=== PATIENT | male | born 1990 | race Caucasian/White ===

== ENCOUNTER 2023-10-08 16:28 | Emergency (ER) | payer OTHER ==
--- OUTSIDE RECORDS SUMMARY | 2023-10-08 16:45 | XMS REPORT | Continuity of Care Document ---
:1990 Author Organization [facility] t Address [address] [facility]. [address] [place] [address] Care Team Providers Name Role Phone Pcp, Patient Does Not Have A Primary Care Physician [id number] Nanentte SHARMA Attending Clinician Unavailable Nannette Becerra Attending Clinician Doctor Unassigned, [place] Attending Clinician Unavailable Nina Chao Attending Clinician Favio Patel MD Attending Clinician FAVIO PATEL Attending Clinician Unavailable DAMASO TEJADA Attending Clinician Unavailable NINA BONE Admitting Clinician Unavailable DAMASO TEJADA Admitting Clinician Unavailable Payers Payer Name Policy Type Policy Number Effective Date Expiration Date Aury lopez [facility] [id number] 2022 00:00:00 PLUS Problems Condition Condition Condition Status Onset Resolution Last Treating Co mments Source Name Details Category Date Date Treatment Clinician Date No known No known Disease Unive rs active active ity of problems problems [facility] Allergies, Adverse Reactions, Alerts Allergy Allergy Status Severity Reaction(s) Onset Inactive Treating Comm ents Source Name Type Date Date Clinician NO KNOWN Drug Active Univers ALLERGIE Class ity of S [facility] Social History Social Habit Start Date Stop Date Quantity Comments Source Exposure to 2022-04-13 2022-04-23 Not sure [facility] SARS-CoV-2 (event) 00:00:00 23:43:00 Medica l Branch [facility]igned [facility] [birth year] [facility] [place] 00:00:00 00:00:00 Medical Branch Smoking Status Start Date Stop Date Source Tobacco smoking consumption [facility] Medical unknown Branch Medications Ordered Filled Start Stop Current Ordering Indication Dosage Frequency Signature Comments Components Source Medication Medication Date Date Medication? Clinician (SIG) Name Name HYDROcodone 2021- No 1{tbl} 1 tablet, Univers -acetaminop 06-17 Oral, ity of [place] (NORCO) 20:00: 18:58 [place]CE[place] 1 [place] 10-325 mg 00 :00 dose, On Medica l tablet 1 Sat Branch tablet 06/17/22 at 1500, Routine amoxicillin 500mg 500 mg, U nivers (TRIMOX) 06-17 Oral, ity of capsule 500 20:00: 18:58 [place]CE[place] 1 [place] mg 00 :00 dose, On Medical Sat Branch 06/17/22 at 1500, AMINA
Re ason for Anti-Infec tive: Documented Infection< br>Documen rosario Infection Site: HEENT
D uration of Therapy: 10 days ibuprofen Yes [id number] 600mg Take 1 Univers 600 mg 7-30 tablet by ity of tablet 00:00: mouth [place] 00 every 6 Medical (six) Branch hours as needed for Pain (scale 4-6). chlorhexidi Yes [id number] 15mL Swish and Univers ne 7-30 spit out ity of (PERIDEX) 00:00: 15 [place] 0.12 % 00 the Medical mouthwash morning Branch and 15 mL in the evening. acetaminoph Yes [id number] 1{tbl} Take 1 Un aldo en-codeine 7-30 tablet by ity of 300-30 mg 00:00: mouth [place] tablet 00 every 4 Medical (four) Branch hours as needed for Pain (scale 4-6). Indication s: acute pain amoxicillin 2021-2021- No [id number] 500mg Take 1 Univers 500 mg 7-30 08-10 capsule by ity of capsule 00:00: 04:59 mouth in [place] 00 :00 the Medical morning Branch and 1 capsule at noon and 1 capsule in the evening. Do all this for 10 days. NaCl 0.9% 2021- No 1000mL at 999 Uni vers (NS) IV 6-06 mL/hr, ity of infusion 07:00: 08:34 Intravenou [place] 1,000 mL 00 :00 s, ONCE, 1 Medic al dose, On Branch 04/24/22 at 0200, AMINA NaCl 0.9% Yes 1000mL at 150 Univ ers (NS) IV 6-06 mL/hr, ity of infusion 03:45: Intravenou [place] 1,000 mL 00 s, Medical CONTINUOUS Branch , Starting on 04/23/22 at 2245, Until Discontinu ed, Routine NaCl 0.9% 2021- No 1000mL at 999 Uni vers (NS) bolus 04-24-06 mL/hr, ity of infusion 01:15: 04:11 1,000 mL, [place] as 1,000 mL 00 :00 IV Medical Infusion, Branch ONCE, 1 dose, On 04/23/22 at 2014, AMINA diphenhydrA No 50mg 50 mg, Uni vers MINE 04-24-06 Oral, ity of (BENADRYL) 01:15: 01:00 ONCE, 1 [place] as tablet 50 00 :00 dose, On Medica l mg [place] 04/23/22 Branch at 2014, AMINA NaCl 0.9% 2021- No 1000mL at 999 Uni vers (NS) bolus 04-24 06-06 mL/hr, ity of infusion 01:00: 03:06 1,000 mL, Kris as 1,000 mL 00 :00 IV Medical Infusion, Branch ONCE, 1 dose, On 04/23/22 at 2000, AMINA LORazepam 2021- No 2mg 2 mg, Slow U nivers (ATIVAN) 04-24 IV Push, ity of injection 2 01:00: 23:52 ONCE, 1 [place] mg 00 :00 dose, On Medical 04/23/22 Branch at 2000, STAT haloperidol 2021- No 5mg 5 mg, Univ ers lactate 04-24 Intramuscu ity o f (HALDOL) 00:45: 01:00 lar, ONCE, [place] injection 5 00 :00 1 dose, On Me dical mg 04/23/22 Branch at 194, STAT
Ch emical Restraint: Yes iohexol 2021- No [id number] 75mL 75 mL, Uni vers (OMNIPAQUE 04-24 Intravenou it y of 350 BULK-75 00:45: 00:34 s, ONCE, 1 [place] mL) 00 :00 dose, On Medical injection 04/23/22 Bran ch 75 mL at 194, Routine traMADOL 50 2018-0 Yes 50mg Take 1 Univ ers mg tablet 6-14 tablet by ity o f 00:00: mouth [place] 00 every 6 Medical (six) Branch hours as needed for Pain (scale 4-6). naproxen 2018-0 Yes 500mg Take 1 Univer s (NAPROSYN) 6-14 tablet by ity of 500 mg 00:00: mouth 2 [place] tablet 00 (two) Medical times Branch daily with meals. traMADOL 50 2018-0 Yes 50mg Take 1 Univ ers mg tablet 6-14 tablet by ity o f 00:00: mouth [place] 00 every 6 Medical (six) Branch hours as needed for Pain (scale 4-6). naproxen 2018-0 Yes 500mg Take 1 Univer s (NAPROSYN) 6-14 tablet by ity of 500 mg 00:00: mouth 2 [place] tablet 00 (two) Medical times Branch daily with meals. traMADOL 50 2018-0 Yes 50mg Take 1 Univ ers mg tablet 6-14 tablet by ity o f 00:00: mouth [place] 00 every 6 Medical (six) Branch hours as needed for Pain (scale 4-6). naproxen 2018-0 Yes 500mg Take 1 Univer s (NAPROSYN) 6-14 tablet by ity of 500 mg 00:00: mouth 2 [place] tablet 00 (two) Medical times Branch daily with meals. FLUOXETINE 2014-11 Yes Take by [facility] ers HCL (PROZAC 2-16 mouth ity of ORAL) 22:36: daily. [address] FLUOXETINE 2014-11 Yes Take by [facility] ers HCL (PROZAC 2-16 mouth ity of ORAL) 22:36: daily. [address] FLUOXETINE 2014-11 Yes Take by Univ ers HCL (PROZAC 2-16 mouth ity of ORAL) 22:36: daily. [address] asenapine 2014-[address] 10 Univ ers (SAPHRIS) 2-16 mg under ity of 10 mg 22:36: the tongue [place] sublinguql 17 at Medical tablet bedtime. Branch asenapine 2014-[address] Univ ers (SAPHRIS) 2-16 mg under ity of 10 mg 22:36: the tongue [place] sublinguql 17 at Medical tablet bedtime. Branch asenapine 2014-[address] 10 Univ ers (SAPHRIS) 2-16 mg under ity of 10 mg 22:36: the tongue [place] sublinguql 17 at Medical tablet bedtime. Branch Vital Signs Vital Name Observation Time Observation Value Comments Source Heart rate 2022-06-17 17:24:00 87 /min [facility] Body temperature 2022-06-17 17:24:[address] [facility] Respiratory rate 2022-06-17 17:24:00 18 /min [facility] Body weight 2022-06-17 17:24:00 68.04 kg [facility] BMI 2022-06-17 17:24:00 20.92 kg/m2 [facility] Oxygen saturation in 2022-06-17 17:24:00 99 /min [facility] Arterial blood by [facility] Pulse oximetry Branch Systolic blood 2022-04-24 18:40:34 108 mm[Hg] Univer sity of pressure [facility] Diastolic blood 2022-04-24 18:40:34 56 mm[Hg] Unive rsity of pressure [facility] Heart rate 2022-04-24 18:40:34 64 /min [facility] Body temperature 2022-04-24 18:40:[address] [facility] Respiratory rate 2022-04-24 18:40:34 18 /min [facility] Oxygen saturation in 2022-04-24 18:40:34 100 /min [facility] blood by [facility] Pulse oximetry Branch Body weight 2022-04-24 00:11:00 68.04 kg [facility] BMI 2022-04-24 00:11:00 20.92 kg/m2 [facility] Procedures Procedure Date / Time Performing Clinician Source Performed CONSENT/REFUSAL FOR 2022-06-17 17:21:29 Doctor Unassigned, No Un [facility] DIAGNOSIS AND TREATMENT Name Medical Branch COVID-19 (ID NOW RAPID 2022-04-24 14:02:00 Nina Bone [facility] TESTING) [facility] CREATINE KINASE 2022-04-24 10:36:00 Favio Patel [facility] MYOGLOBIN SERUM 2022-04-24 06:49:00 Favio Patel [facility] CBC WITH DIFF 2022-04-24 05:07:00 Favio Patel [facility] CREATINE KINASE 2022-04-24 05:07:00 Favio Patel [facility] LIPASE 2022-04-24 05:07:00 Favio Patel [facility] COMP. METABOLIC PANEL 2022-04-24 05:07:00 Favio Patel [facility] ([id number]) [facility] CT ANGIOGRAM NECK 2022-04-24 00:40:31 Nina Bone [facility] CREATINE KINASE 2022-04-23 23:50:00 Nina Bone o [facility] THYROID STIMULATING 2022-04-23 23:50:00 Nina Bone [facility] HORMONE [facility] COMP. METABOLIC PANEL 2022-04-23 23:50:00 Nina Bone [facility] ([address] SALICYLATE 2022-04-23 23:50:00 Chitra [facility] ETHANOL 2022-04-23 23:50:00 Chitra [facility] CBC WITH DIFF 2022-04-23 23:50:[facility]22-04-23 23:50:00 Chitra [facility] URINE DRUG (IMMUNOASSAY) 2022-04-23 23:50:00 Nina Bone [facility] SCREEN W/O REFLEX Encounters Start End Encounter Admission Attending Care Care Encounter Source Date/Time Date/Time Type Type Clinicians Facility Department ID 2022-06-17 2022-06-17 Emergency X Nannette SHARMA [facility] ERT [id number] Univers 12:26:00 14:20:00 ity of [facility] 2022-06-17 2022-06-17 Emergency Nannette Sharma [facility] [id number] Univers 12:26:00 14:20:00 Rina FIERRO 350.1.13.10 i ty of [place] 4.2.7.2.6 [facility] [id number] [address] 2022-06-17 2022-06-17 Orders Doctor VIRGIE [id number] Univers 00:00:00 00:00:00 Only Unassigned, TRI[place] 350.1.13.10 ity of [place] [facility] 4.2.7.2.686 Kris [id number] [place] [address] Branch 2022-04-23 2022-04-24 [facility] 1.2.840.1 [id number] Univers 18:26:00 14:22:00 Favio Patel 350.1.13.10 ity of [place] 4.2.7.2.686 [facility] [id number] [place] [address] Branch 2022-04-23 2022-04-24 Emergency X JORGE MIMARCIAL ERT [id number] Univers 18:26:00 14:22:00 FAVIO donahuemelissa [facility] 2020-04-09 2020-04-09 Emergency X MALLORY [facility] ERT [id number] Univers 15:59:02 18:05:00 DAMASO [facility] Results Test Description Test Time Test Comments Results Result Comments Source MYOGLOBIN SERUM 2022-04-24 18:50:03 Test Item Value Reference Range Interpretation Comme nts MYOGLOB S (test code = 233.8 ng/mL See_Comment H [Aut omated message] The 0686309833) system which ge nerated this result tra nsmitted reference range : <=121.0. The reference r bernardino was not used to int erpret this result as emmanuel l/abnormal. LELE (test code = LELE) Biotin has been reported to cause a negative bias, interpret results relative to patient's use of biotin. Lab Interpretation (test Abnormal code = 26019-3) [facility] [id number] 10:56:42 Test Item Value Reference Range Interpretation Comments CK (test code = 0426925979) 911 U/L 33-194 H Lab Interpretation (test code = Abnormal 39249-0) [facility] ([id number])2022-04-24 05:38:22 Test Item Value Reference Range Interpretation Comments NA (test code = 137 mmol/L 135-145 9530784792) K (test code = 4.0 mmol/L 3.5-5.0 7679643876) CL (test code = 106 mmol/L 98-108 8474424574) CO2 TOTAL (test code = 19 mmol/L 23-31 L 6529306690) AGAP (test code = 2-16 8747936889) BUN (test code = 11 mg/dL 7-23 4089085974) GLUCOSE (test code = 104 mg/dL 70-110 8101185732) CREATININE (test code = 1.05 mg/dL 0.60-1.25 3657484224) TOTAL BILI (test code = 0.6 mg/dL 0.1-1.0 9890561642) CALCIUM (test code = 9.1 mg/dL 8.6-10.6 8019573181) T PROTEIN (test code = 6.3 g/dL 6.3-8.2 9648224421) ALBUMIN (test code = 4.0 g/dL 3.5-5.0 1845047198) ALK PHOS (test code = 56 U/L 34-122 8032107812) ALTv (test code = 12 U/L 5-50 2-6) AST(SGOT) (test code = 34 U/L 13-40 5738434310) eGFR (test code = mL/min/1.73m2 5578151889) LELE (test code = LELE) Association of Glomerular Filtration Rate (GFR) and Staging of Kidney Disease* + --+ --+ ------+| GFR (mL/min/1.73 m2) ?| With Kidney Damage ?| ?Without Kidney Damage+ --------+ --------+ +| ?>90 ?| ?Stage one ?| ? Normal ?+ ---+ ---+ -------+| ?60-89 ?| ?Stage two ?| ? Decreased GFR ? + --+ --+ ------+| ?30-59 ?| ?Stage three ?| ? Stage three ? + --+ --+ ------+| ?15-29 ?| ?Stage four ? | ? Stage four ?+ ---+ ---+ -------+| ?<15 (or dialysis) ? ?| ?Stage five ? | ? Stage five ?+ ---+ ---+ -------+ *Each stage assumes the associated GFR level has been in effect for at least three months. ?Stages 1 to 5, with or without kidney disease, indicate chronic kidney disease. Notes: Determination of stages one and two (with eGFR >59mL/min/1.73 m2) requires estimation of kidney damage for at least three months as defined by structural or functional abnormalities of the kidney, manifested by either:Pathological abnormalities or Markers of kidney damage (including abnormalities in the composition of the blood or urine or abnormalities in imaging tests). Lab Interpretation Abnormal (test code = 92425-4) [facility] 05[facility]38[facility]02 Test Item Value Reference Range Interpretation Comments LIPASE (test code = 0119596837) 20 U/L 0-220 Lab Interpretation (test code = Normal 05929-9) [facility] [id number] 05:38:02 Test Item Value Reference Range Interpretation Comments CK (test code = 7311006618) 1037 U/L 33-194 H Lab Interpretation (test code = Abnormal 26895-0) [facility] WITH [id number] 05:16:00 Test Item Value Reference Range Interpretation Comments WBC (test code = See_Comment H [Automated 6690-2) message] The sy stem which generated this result transmitted reference range : 4.20 - 10.70 10*3/?L. The reference range was not used to interpret this result as normal/abnormal . RBC (test code = See_Comment L [Automated 789-8) message] The sy stem which generated this result transmitted reference range : 4.26 - 5.52 10*6/?L. The reference range was not used to interpret this result as normal/abnormal . HGB (test code = 12.2 g/dL 12.2-16.4 718-7) HCT (test code = 35.0 % 38.4-49.3 L 4544-3) MCV (test code = 83.3 fL 81.7-95.6 787-2) MCH (test code = 29.0 pg 26.1-32.7 785-6) MCHC (test code = 34.9 g/dL 31.2-35.0 786-4) RDW-SD (test code = 40.0 fL 38.5-51.6 83059-6) RDW-CV (test code = 13.2 % 12.1-15.4 788-0) PLT (test code = See_Comment H [Automated 777-3) message] The sy stem which generated this result transmitted reference range : 150 - 328 10*3/ ?L. The reference r bernardino was not used to interpret this result as normal/abnormal . MPV (test code = 8.5 fL 9.8-13.0 L 28118-8) NRBC/100 WBC (test See_Comment [Automat ed code = 2756997125) message] The system which generated this result transmitted reference range : 0.0 - 10.0 /100 WBCs. The refer ence range was not u sed to interpret th is result as normal/abnormal . NRBC x10^3 (test code <0.01 See_Comment [Auto mated = 9378927271) message] The s ystem which generated this result transmitted reference range : 10*3/?L. The reference range was not used to interpret this result as normal/abnormal . GRAN MAT (NEUT) % 57.1 % (test code = 770-8) IMM GRAN % (test code 0.40 % = 4156436366) LYMPH % (test code = 30.1 % 736-9) MONO % (test code = 8.9 % 5905-5) EOS % (test code = 3.0 % 713-8) BASO % (test code = 0.5 % 706-2) GRAN MAT x10^3(ANC) 7.52 10*3/uL 1.99-6.95 H (test code = 7593456105) IMM GRAN x10^3 (test 0.05 10*3/uL 0.00-0.06 code = 0408015908) LYMPH x10^3 (test code 3.97 10*3/uL 1.09-3.23 H = 731-0) MONO x10^3 (test code 1.17 10*3/uL 0.36-1.02 H = 742-7) EOS x10^3 (test code = 0.40 10*3/uL 0.06-0.53 711-2) BASO x10^3 (test code 0.07 10*3/uL 0.01-0.09 = 704-7) Lab Interpretation Abnormal (test code = 09742-2) [facility] [id number] 00:42:52 Test Item Value Reference Range Interpretation Comments TSH (test code = See_Comment [Automated message] 2426084808) The system Pro Breath MD h generated this result transmitted ref erence range: 0.45 - 4 .70 mIU/L. The refe rence range was not u sed to interpret this result as normal/abnor mal. Lab Interpretation (test Normal code = 21295-1) [facility] [id number] 00:27:49 Test Item Value Reference Range Interpretation Comments CK (test code = 0388996789) 855 U/L 33-194 H Lab Interpretation (test code = Abnormal 60038-2) [facility]20[facility] 00:19:23 Test Item Value Reference Range Interpretation Comments SALICYLATE (test code <10 mg/L = 1357789642) LELE (test code = LELE) Therapeutic Range: ? Analgesic and Antipyretic Use ? 20-100 mg/L ? ? Anti-Inflammatory Use ? 100-250 mg/L Toxic Range: ? Greater than 300 mg/L [facility] (ETOH) [id number] 00:19:18 Test Item Value Reference Range Interpretation Comments ALCOHOL (test code = <10 mg/dL 7613486820) LELE (test code = LELE) <10 Huyjlagz02-525 Toxic>100 Depression of [employer]>400 Fatalities Reported [facility]22[facility] 00:19:03 Test Item Value Reference Range Interpretation Comments ACETAMINOP (test code = <10.0 10.0-30.0 L 7902894692) LELE (test code = LELE) Toxic: Greater than 200 ug/mL @ 4 hour post ingestion or greater than 50 ug/mL @ 12 hour post ingestion Lab Interpretation (test Abnormal code = 95701-0) [facility] (18755) 2022-04-24 00:12:33 Test Item Value Reference Range Interpretation Comments NA (test code = 140 mmol/L 135-145 0861670104) K (test code = 4.3 mmol/L 3.5-5.0 8748970456) CL (test code = 105 mmol/L 98-108 2191777329) CO2 TOTAL (test code = 15 mmol/L 23-31 L 9411336234) AGAP (test code = 2-16 H 1596656490) BUN (test code = 15 mg/dL 7-23 3625735474) GLUCOSE (test code = 144 mg/dL 70-110 H 3609597497) CREATININE (test code = 1.76 mg/dL 0.60-1.25 H 7942584496) TOTAL BILI (test code = 1.2 mg/dL 0.1-1.1 H 8910645405) CALCIUM (test code = 10.4 mg/dL 8.6-10.6 2911030433) T PROTEIN (test code = 8.3 g/dL 6.3-8.2 H 4611767501) ALBUMIN (test code = 5.4 g/dL 3.5-5.0 H 1762584971) ALK PHOS (test code = 77 U/L 34-122 6998588375) ALTv (test code = 16 U/L 5-50 1742-6) AST(SGOT) (test code = 35 U/L 13-40 7747294208) eGFR (test code = mL/min/1.73m2 2834505056) LELE (test code = LELE) Association of Glomerular Filtration Rate (GFR) and Staging of Kidney Disease* + --+ --+ ------+| GFR (mL/min/1.73 m2) ?| With Kidney Damage ?| ?Without Kidney Damage+ --------+ --------+ +| ?>90 ?| ?Stage one ?| ? Normal ?+ ---+ ---+ -------+| ?60-89 ?| ?Stage two ?| ? Decreased GFR ? + --+ --+ ------+| ?30-59 ?| ?Stage three ?| ? Stage three ? + --+ --+ ------+| ?15-29 ?| ?Stage four ? | ? Stage four ?+ ---+ ---+ -------+| ?<15 (or dialysis) ? ?| ?Stage five ? | ? Stage five ?+ ---+ ---+ -------+ *Each stage assumes the associated GFR level has been in effect for at least three months. ?Stages 1 to 5, with or without kidney disease, indicate chronic kidney disease. Notes: Determination of stages one and two (with eGFR >59mL/min/1.73 m2) requires estimation of kidney damage for at least three months as defined by structural or functional abnormalities of the kidney, manifested by either:Pathological abnormalities or Markers of kidney damage (including abnormalities in the composition of the blood or urine or abnormalities in imaging tests). Lab Interpretation Abnormal (test code = 32804-5) [facility] with [id number] 00:09:37 Test Item Value Reference Range Interpretation Comments WBC (test code = See_Comment H [Automated 6690-2) message] The system which generated this result transmit rosario reference range : 4.20 - 10.70 10*3/?L. The reference range was not used to interpret this result as normal/abnormal . RBC (test code = See_Comment [Automated 789-8) message] The system which generated this result transmit rosario reference range : 4.26 - 5.52 10*6/?L. The reference range was not used to interpret this result as normal/abnormal . HGB (test code = 13.8 g/dL 12.2-16.4 718-7) HCT (test code = 38.6 % 38.4-49.3 4544-3) MCV (test code = 82.0 fL 81.7-95.6 787-2) MCH (test code = 29.3 pg 26.1-32.7 785-6) MCHC (test code = 35.8 g/dL 31.2-35.0 H 786-4) RDW-SD (test code = 38.5 fL 38.5-51.6 82766-6) RDW-CV (test code = 12.9 % 12.1-15.4 788-0) PLT (test code = See_Comment H [Automated 777-3) message] The system which generated this result transmit rosario reference range : 150 - 328 10*3/ ?L. The reference range was not u sed to interpret th is result as normal/abnormal . MPV (test code = 8.6 fL 9.8-13.0 L 50649-8) NRBC/100 WBC (test See_Comment [Automat ed code = 5871323705) message] The system which generated this result transmit rosario reference range : 0.0 - 10.0 /100 WBCs. The reference range was not used to interpret this result as normal/abnormal . NRBC x10^3 (test code <0.01 See_Comment [Auto mated = 7542665213) message] The system which generated this result transmit rosario reference range : 10*3/?L. The reference range was not used to interpret this result as normal/abnormal . GRAN MAT (NEUT) % 67.7 % (test code = 770-8) IMM GRAN % (test code 0.40 % = 8772110822) LYMPH % (test code = 19.0 % 736-9) MONO % (test code = 10.6 % 5905-5) EOS % (test code = 1.7 % 713-8) BASO % (test code = 0.6 % 706-2) GRAN MAT x10^3(ANC) 12.79 10*3/uL 1.99-6.95 H (test code = 6260954400) IMM GRAN x10^3 (test 0.08 10*3/uL 0.00-0.06 H code = 3973253467) LYMPH x10^3 (test code 3.59 10*3/uL 1.09-3.23 H = 731-0) MONO x10^3 (test code 2.01 10*3/uL 0.36-1.02 H = 742-7) EOS x10^3 (test code = 0.32 10*3/uL 0.06-0.53 711-2) BASO x10^3 (test code 0.12 10*3/uL 0.01-0.09 H = 704-7) Lab Interpretation Abnormal (test code = 81910-9) [facility]"
--- NOTE | 2023-10-08 16:50 | ER ---
Nurse's Notes [facility] Name: Fortunato North Age: 32 yrs Sex: Male : 1990 Arrival Date: 10/08/2023 Time: 16:28 Bed Waiting Private MD: Diagnosis: ED Course: 10/08 16:29 Patient arrived in ED. im 16:33 Patient's name was called from ER lobby. No response. hb 16:35 [facility] 16:35 Noah Guerra MD is Attending Physician. jh 16:35 Patient's name was called from ER lobby. No response. hb 16:41 Patient's name was called from ER lobby. No response. Unable to locate patient. Will hb disposition as left without being seen by a provider. 16:44 Noah Guerra MD is Attending Physician. rt Administered Medications: No medications were administered Outcome: 16:44 Patient left the ED. hb 16:49 Patient left the ED. hb Signatures: Jennifer Donato RN RN Aurora Sosa FNP [place] [id number] Noah Guerra MD MD rt Brittany Harrison im
== END 2023-10-08 16:49 | disposition left against medical advice (07) ==
LOC: ER 16:28
DX: Z02.9 Encounter for administrative examinations, unspecified (principal)